=== PATIENT | male | born 2000 | race Caucasian/White ===

== ENCOUNTER → 2020-06-10 09:45 | Outpatient (CLI) | payer OTHER, SELFPAY | PROVIDERS: PCP Internal Medicine; Visit Provider Internal Medicine | DX: Z03.818 Encounter for observation for suspected exposure to other biological agents ruled out (principal) | CPT/HCPCS: U0003 ==

== ENCOUNTER 2025-05-04 00:09 | Emergency (ER) | payer BC, SELFPAY ==
[2025-05-04 00:19] VITALS: BP 154/78; PULSE 77; RESP 16; TEMP 36.6; O2SAT 96; BMI 36.0
[2025-05-04 00:24] VITALS: BP 141/78; PULSE 74; RESP 17; TEMP 36.6; O2SAT 95
--- NOTE | 2025-05-04 00:24 | XR_ITS ---
PROCEDURE INFORMATION: Exam: XR Right Foot Exam date and time: 05/04/2025 12:43 AM Age: 24 years old Clinical indication: Pain; Foot; Right; Additional info: Pain lateral aspect TECHNIQUE: Imaging protocol: Radiologic exam of the right foot. Views: 3 or more views. COMPARISON: CR XR ANKLE RT MIN 3V 05/04/2025 12:43 AM FINDINGS: Bones/joints: The foot is normally aligned. There is no acute fracture evident. The joint spaces are intact. No significant degenerative changes. Soft tissues: Normal. IMPRESSION: No acute findings.
--- NOTE | 2025-05-04 00:24 | XR_ITS ---
PROCEDURE INFORMATION: Exam: XR Right Ankle Exam date and time: 05/04/2025 12:43 AM Age: 24 years old Clinical indication: Pain; Ankle; Right; Additional info: Pain, swelling TECHNIQUE: Imaging protocol: Radiologic exam of the right ankle. Views: 3 or more views. COMPARISON: CR XR FOOT RT MIN 3V 05/04/2025 12:43 AM FINDINGS: Bones/joints: The ankle mortise is intact. The talar dome is normal. There is no acute fracture. Soft tissues: There is perhaps mild anterior soft tissue swelling. IMPRESSION: Mild anterior soft tissue swelling.
[2025-05-04] MEDS: IBUPROFEN 800 MG TABLET PO (01:09)
[2025-05-04] MEDS: ACETAMINOPHEN 500MG TAB 1000 MG PO (01:09)
--- NOTE | 2025-05-04 02:12 | [facility].EDGENADL ---
Discharge Plan Disposition Patient Disposition: Home, Self-Care Condition: Good Referrals Follow up/Referrals: Joyce Burns [Primary Care Provider, Medical] - See instructions Telma Parks DPM [Staff Physician, Podiatry] - See instructions Referral Note: Right foot pain, suspect overuse injury Activity Restrictions/Add. Instructions Additional Instructions/Restrictions: You were evaluated in the ER and are believed to be appropriate for discharge at this time. Take Tylenol and ibuprofen if needed for pain, do not exceed the recommended dose on the bottle. Drink water and eat small snack each time you take these medications to avoid side effects. Do not take ibuprofen for more than 1 week straight. Wear the hard soled shoe for support unless you are sleeping or bathing and use crutches to help you get around if you are having pain with bearing weight. Rest the foot and allow it to recover. You have been referred to Dr. Parks's office for podiatry follow-up. Call first thing Tuesday morning for an appointment. Also follow-up with your primary care doctor for reevaluation in a few days. Return to the ER with any new, worsening, or otherwise concerning symptoms. Clinical Impressions Clinical Impression: Acute pain of right foot Print Language Print Language: Nepali Discharge ED Provider: Faustino Richardson General Adult HPI General Chief complaint: PAIN Stated complaint: R foot pain Time Seen by Provider: 05/04/25 00:24 Mode of Arrival: Wheelchair Description of Symptoms (Recalled from ER Triage Doc. by RN): Patient states he awoke this morning with right foot pain. States he walked on it all day and the pain became severe /10. Pedal pulse present and marked. States he has hypertension, but no other medical history. Right foot in swollen on the lateral aspect on of the riht foot, no discoloration. Patient denies possible injury. History of Present Illness HPI narrative: 24-year-old male presents to the ER complaining of right foot pain. He states he woke up with right foot pain and demonstrates the lateral aspect of the right foot but states as the pain has worsened it is now radiating into the ankle. He states he walked on it all day and pain has progressively progressed. It is now 9 out of 10 and he has significant discomfort with weightbearing. He states he felt like he was having swelling in the foot but it is better at this time. Patient reports a history of hypertension. He reports no known injuries, no trips or falls, no crush injury to the foot. He states he has not had any recent laceration or history of foreign body. 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 He states he has not worn any new shoes recently. Denies fevers or chills,, tingling or weakness. Medications prior to arrival. no other complaints or concerns. Related Data Allergies Allergy/AdvReac Type Severity Reaction Status Date / Time No Known Allergies Allergy Verified 10/01/20 13:39 [facility] Disclaimer: The information contained in this section may have been updated after the patient was seen, as this information can be updated by other users. Social History Smoking Status: Current every day smoker alcohol intake: never current occupational status: employed Travel in the last 8 weeks?: None ROS Obtained: Yes Systems reviewed as appropriate & no additional complaints except as documented per HPI Physical Exam General General appearance: alert and in no apparent distress Head Head exam: atraumatic and normocephalic Eye Eye exam: Present PERRL and EOMI ENT ENT exam: Present mucous membranes moist Neck Neck exam: Present normal inspection and full ROM Chest Chest inspection: Present symmetric chest wall rise Respiratory Respiratory exam: Absent respiratory distress or stridor Cardiovascular Cardiovascular exam: Present regular rate and normal rhythm Extremities Exam Extremities exam: Present full ROM and normal capillary refill; Absent edema Expanded Lower Extremity Exam Right: Top foot image:  1. Area of maximum tenderness along the mid/distal right fifth metatarsal; neurovascularly intact, no deformity or crepitus, no bruising, no obvious swelling, no foreign body appreciated, full range of motion distally Neurological Exam Neurological exam: Present alert and oriented X3; Absent motor sensory deficit Psychiatric Psychiatric exam: Present normal affect and normal mood Skin Skin exam: Present warm and dry Medical Decision Making Medical Records Medical records reviewed: Yes I reviewed the patient's medical records. Screening: Per USPSTF and CDC recommendations, given the prevalence of disease in our region, it is our hospital?s policy to screen for HIV and viral Hepatitis for all patients aged 18 and over and those with ongoing risk factors. [place] Inquiry Pt receiving controlled substance: No Vital Signs: 05/04/25 00:19 05/04/25 00:24 Temperature 97.8 F 97.8 F Temperature Source Oral Oral Pulse Rate 74 Pulse Rate [Right] 77 Respiratory Rate 16 17 Blood Pressure 141/78 H Blood Pressure [Right Arm] 154/78 H Blood Pressure Mean [Right Arm] 103 02 Sat by Pulse Oximetry 96 95 Oxygen Delivery Method Room Air Orders (Tests/Meds): ED MEDICATIONS Discontinued Medications Generic Name Dose Route Start Last Admin Trade Name Jalen PRN Reason Stop Dose Admin Acetaminophen 1,000 mg 05/04/25 00:59 05/04/25 01:09 Acetaminophen 500mg Tab PO 05/04/25 01:00 1,000 mg ONCE ONE Administration Ibuprofen 800 mg 05/04/25 00:59 05/04/25 01:09 Ibuprofen 800 Mg Tablet PO 05/04/25 01:00 800 mg ONCE ONE Administration ORDERS Category Date Time Status Ankle XR -Right minimum 3 Views [XR ankle RT min 3V] Exams 05/04/25 00:24 Taken Stat Foot XR right minimum 3 views [XR foot RT min 3V] Stat Exams 05/04/25 00:24 Taken Medical Decision Narrative: In summary, this 24-year-old male presents to the emergency department today with right foot pain that has gradually progressed and is now radiating to the ankle. On initial evaluation patient is hemodynamically stable, afebrile, overall well-appearing, patient has tenderness at the right mid to distal fifth metatarsal with no bruising, no obvious swelling, no crepitus, neurovascularly intact, full range of motion of the ankle without tenderness, no evidence of swelling or findings of traumatic injury. No laceration, wound, or evidence of foreign body. Differential diagnosis includes but is not limited to plantar fasciitis, stress fracture, sprain, strain, I considered the possibility of foreign body but I have low suspicion for this, I have very low suspicion for acute osseous injury other than possible stress fracture. Based on these concerns, I ordered x-ray right foot and ankle. Patient received Tylenol and ibuprofen for treatment. X-rays personally interpreted do not demonstrate acute osseous injury, see radiology read for final interpretation. Radiology read comments on possible subtle anterior right ankle swelling but this is not appreciated clinically and patient does not have pain in this area. The radiation of pain into the ankle is into the lateral/posterior area. Negative Garcia test, no findings consistent with Achilles injury. On reassessment patient has not had significant change in pain but I believe is appropriate for discharge at this time. I believe patient most likely has an overuse injury causing soft tissue injury given the worsening with use and his work. Because he is having significant discomfort and is nearly unable to bear weight at this time I am going to place him in a hard soled shoe for support in case there is a subtle stress fracture that I cannot appreciate on x-ray and provided the patient with crutches to help with ambulation. I recommended rest, management of pain with Tylenol and ibuprofen, and provided referral to Dr. Parks for outpatient follow-up. Patient was given instructions on symptomatic management, follow up instructions, and return precautions for the emergency department. Patient indicated understanding and was discharged in stable condition. Critical Care Critical Care Time Critical Care Time: No
[2025-05-04 02:27] VITALS: BP 131/88; PULSE 78; RESP 17; TEMP 36.6; O2SAT 96
== END 2025-05-04 02:32 | disposition home or self-care (01) ==
PROVIDERS: Emergency Provider Emergency Medicine; PCP Nurse Practitioner Family
DX: M79.671 Pain in right foot (principal)
CPT/HCPCS: 73610; 73630; 99282; 99283